=== PATIENT | female | born 1985 | race Caucasian/White ===

== ENCOUNTER → 2017-10-26 13:29 | Outpatient (REF) | payer OTHER, SELFPAY | LOC: LBN 13:29 | PROVIDERS: PCP Family Medicine; Visit Provider Obstetrics & Gynecology | DX: R10.2 Pelvic and perineal pain (principal) | CPT/HCPCS: 87077; 87086 ==

== ENCOUNTER 2018-03-05 10:06 | Outpatient (REF) | payer OTHER, MEDICAID, SELFPAY ==
[2018-03-05 20:44] LABS: Abs Immature Grans 0.02 k/cumm (0.0-0.09); Absolute Basophil Count 0.07 k/cumm (0.0-0.2); Absolute Eosinophil Count 0.22 k/cumm (0.0-0.7); Absolute Lymphocyte Count 2.17 k/cumm (1.2-3.4); Absolute Monocyte Count 0.59 k/cumm (0.11-0.7); Absolute Neutrophil Count 4.75 k/cumm (1.2-6.7); Basophils % 0.9; Eosinophils % 2.8; HCT 40.5 % (36.0-46.0); HGB 13.2 g/dL (12.0-15.5); Immature Grans % 0.3; Lymphocytes % 27.7; Mean Corp. HGB Concentration 32.6 g/dL (32.0-36.0); Mean Corpuscular Hemoglobin 28.9 pg (27.0-33.0); Mean Corpuscular Volume 88.8 fL (80-95); Mean Platelet Volume 11.2 fL (8.0-11.0); Monocytes % 7.5; Neutrophils % 60.8; Platelet Count 209 x1000/uL (130-400); RBC 4.56 m/cumm (4.00-5.20); RBC Distribution Width 13.3 % (11.7-14.6); White Blood Cell Count 7.82 k/cumm (4.4-10.8)
[2018-03-05 21:03] LABS: Iron 100 ug/dL (50-175); Total Iron Binding Capacity 241 ug/dL (250-450); Transferrin Sat 41 % (15-50)
[2018-03-05 21:24] LABS: ALT 50 U/L (12-78); AST 25 U/L (15-37); Albumin 4.3 g/dL (3.4-5.0); Alkaline Phosphatase 64 U/L (46-116); Anion Gap 11.2 mmol/L (3-11); BUN 12 mg/dL (7-18); Bilirubin, Total 0.4 mg/dL (0.2-1.0); CO2 25.8 mmol/L (21.0-32.0); CREATININE 0.76 mg/dL (0.55-1.02); Calcium 9.2 mg/dL (8.5-10.1); Chloride 105 mmol/L (98-107); Ferritin 123 ng/mL (8-388); Glucose 63 mg/dL (70-100); Potassium 3.8 mmol/L (3.5-5.1); Sodium 142 mmol/L (136-145); Total Protein 7.6 g/dL (6.4-8.2); Vitamin B12 423 pg/mL (193-986)
[2018-03-08 06:37] LABS: Vitamin D 25 Total 36.9 ng/ml (30-100)
[2018-03-08 09:34] LABS: Homocysteine 12.9 umol/L (4.5-12.4)
== END 2018-03-05 10:26 ==
LOC: LBN 10:06
PROVIDERS: PCP Family Medicine; Visit Provider Naturopath
DX: R53.83 Other fatigue (principal); Z13.220 Encounter for screening for lipoid disorders
CPT/HCPCS: 80053; 82306; 83090; 82607; 82652; 82728; 83540; 83550; 85025

== ENCOUNTER 2018-08-30 14:13 | Outpatient (REF) | payer OTHER, SELFPAY | END 2018-08-30 14:33 | LOC: LBN 14:13 | PROVIDERS: PCP Family Medicine; Visit Provider Nurse Practitioner Family | DX: R35.0 Frequency of micturition (principal) | CPT/HCPCS: 87086 ==

== ENCOUNTER 2018-12-10 11:52 | Outpatient (REF) | payer OTHER, SELFPAY ==
[2018-12-11 13:43] LABS: HSV 1 DNA Result POSITIVE; HSV 2 DNA Result Negative; Specimen Description LIP
[2018-12-13 14:26] LABS: GC Result Negative; Specimen Description URINE
[2018-12-13 14:57] LABS: Chlamydia Result Positive
== END 2018-12-10 12:12 ==
LOC: LBN 11:52
PROVIDERS: PCP Family Medicine; Visit Provider Nurse Practitioner
DX: R30.0 Dysuria (principal); B00.1 Herpesviral vesicular dermatitis
CPT/HCPCS: 87491; 87529; 87591; 87086

== ENCOUNTER 2018-12-27 13:49 | Outpatient (REF) | payer OTHER, SELFPAY ==
[2018-12-28 12:40] LABS: Chlamydia Result Negative (Negative); GC Result Negative (Negative); Specimen Description ENDOCERVICAL
== END 2018-12-27 14:09 ==
LOC: LBN 13:49
PROVIDERS: PCP Family Medicine; Visit Provider Obstetrics & Gynecology Gynecology
DX: R10.2 Pelvic and perineal pain (principal); R30.0 Dysuria; Z11.3 Encounter for screening for infections with a predominantly sexual mode of transmission
CPT/HCPCS: 87491; 87591

== ENCOUNTER 2018-12-29 01:29 | Outpatient (CLI) | payer OTHER, SELFPAY ==
--- NOTE | 2018-12-29 07:46 | DI.US_ITS ---
EXAM: US PELVIS TRANSVAGINAL CLINICAL HISTORY: pelvic pain and fullness, dysuria, R30.0, R10.2.,PAIN OVER BLADDER, BILAT FLANK PA IN TECHNIQUE: Ultrasound performed using standard protocol. COMPARISON: PELVIS TRANSVAG from 08/02/2014 FINDINGS: Transabdominal and transvaginal examination was carried out. Uterus measures 8.3 x 3.6 x 4.4 cm. End ometrium is 10.6 mm in thickness. There is a lower uterine segment anterior fibroid measuring 1.6 by 1.1 x 1.9 cm and a small quantity of fluid is noted in the cervical canal. Right ovary measures 4.4 x 2.7 x 3.0 cm and contains a 2.4 by 1.8 x 2.0 cm cyst. The left ovary measures 2.7 x 2.2 x 2.2 cm and contains a 1.6 x 1.0 x 1.5 cm cyst. Note is made of bilateral hydronephrosis, right more advance d than left. There is no evidence of ovarian torsion. Note is again made of a small quantity of flui d within the cervical canal.
== END 2018-12-29 01:49 ==
PROVIDERS: PCP Family Medicine; Visit Provider Obstetrics & Gynecology Gynecology
DX: R10.2 Pelvic and perineal pain (principal); R30.0 Dysuria; D25.9 Leiomyoma of uterus, unspecified; N83.291 Other ovarian cyst, right side; N83.292 Other ovarian cyst, left side
CPT/HCPCS: 76830; 76856

== ENCOUNTER 2019-01-14 00:51 | Outpatient (CLI) | payer OTHER, SELFPAY ==
--- NOTE | 2019-01-14 09:35 | DI.MRI_ITS ---
EXAM: MR BRAIN WO CLINICAL HISTORY: pt with worsening headaches and visual disturbance, R51, H53.9. TECHNIQUE: Multiplanar multisequence MRI was performed. COMPARISON: MRI - BRAIN WO CONTRAST from 04/17/2014 FINDINGS: Note is made of apparent bilateral maxillary retention cysts. Ventricular system is normal in appearance. No signal abnormality identified in the brain. Diffusio n-weighted imaging is within normal limits. There is normal flow void in the [id number] vascul ature. The orbital and temporal structures appear intact. Susceptibility weighted imaging shows no evidence of intracranial hemorrhage. IMPRESSION: Negative examination of the brain.
== END 2019-01-14 01:11 ==
PROVIDERS: PCP Family Medicine; Visit Provider Nurse Practitioner Adult Health
DX: R51 Headache (principal); H53.9 Unspecified visual disturbance; J34.1 Cyst and mucocele of nose and nasal sinus
CPT/HCPCS: 70551

== ENCOUNTER 2019-01-17 09:47 | Emergency (ER) | payer OTHER, SELFPAY ==
[2019-01-17 09:53] VITALS: BP 119/75; PULSE 72; RESP 14; TEMP 37; O2SAT 100
--- NOTE | 2019-01-17 10:35 | ED.GENADUL_ITS ---
Discharge Plan Disposition Patient Disposition: HOME Discharge Details Chief Complaint: Headache Clinical Impression: Refractory migraine Primary Care Provider: Tay Rodas ED Provider: Prem Paniagua Home Meds and New Rx's Prescriptions: No Action sumatriptan succinate 100 mg tablet 100 mg PO ONCE Qty: 5 RF: 5 valacyclovir 1 gram tablet 1,000 mg PO DAILY Qty: 8 RF: 0 naproxen 500 mg tablet 500 mg PO BID PRN (Reason: pain) Qty: 30 RF: 0 prochlorperazine maleate [Compazine] 10 mg tablet 10 mg PO Q8H PRN (Reason: nausea and vomiting) Qty: 20 RF: 0 oxybutynin chloride 5 mg tablet extended release 24hr 5 mg PO DAILY Qty: 30 RF: 3 oxycodone-acetaminophen 5-325 mg tablet 1 tab PO Q4H MDD 4 tabs PRN (Reason: pain) Qty: 15 RF: 0 propranolol 60 mg capsule,extended release 24 hr 60 mg PO DAILY Qty: 30 RF: 1 cholecalciferol (vitamin D3) 1,000 unit capsule 1,000 unit PO DAILY RF: 0 cyanocobalamin (vitamin B-12) Tablet,Chewable PO PRNRF: 0 methylprednisolone 4 mg tablets,dose pack See Rx Instructions PO PER PKG DIR Qty: 21 RF: 0 Fish Oil 1 EACH capsule 1 ea PO DAILY RF: 0 quetiapine 200 mg tablet 200 mg PO HS Qty: 90 RF: 4 Discharge Instructions Instructions: Migraine Headache (ED) Additional Instructions: Your lab tests in the emergency department were negative for any acute findings. Your MRI done on 01/14/2019 was negative. I have placed a referral to neurology for follow-up in their headache clinic. You must contact your primary care provider in the interim to discuss further outpatient management and possible time off from work. If your symptoms acutely worsen you should return to the emergency department. Continue to take your medications as prescribed. Stand Alone Forms: Work Release Referrals: Tay Rodas MD [Primary Care Provider] - 3 days Discharge Data Discharge Date/Time-TO BE ENTERED AT DEPARTURE: 01/17/19 12:43 Medical Decision Making This is a 33-year-old female with recurrent migraine headaches over the last year however her current episode is lasted 6 days. Despite best efforts here in the emergency department she still rates her headache a 5 out of 10. She did have slight improvement with fluids and medication. She had an MRI done outpatient on Thursday which was negative for any structural pathology. She has not formally been seen in the headache clinic at [facility] [place], therefore, I have placed a referral for follow-up. She is requesting her IV pole at this time as it is causing her great discomfort. Her blood tests are all within normal limits and I see no focal deficits on exam. We discussed follow-up return precautions and return for her PCP if symptoms persist. She should return to the emergency department if they acutely worsen. HPI General Date/Time Provider Initiated Documentation: 01/17/19 10:00 . HPI Narrative: Patient is a 33-year-old female with a significant past medical history for migraines along with bipolar disorder and depression who presents to the emergency department with ongoing worsening migraine headache. Patient states that she is had this migraine for roughly 6 days. Her typical migraine pattern is 3 days with 4 days of rest. She has been seen by her primary care provider several times with multiple different medication regimens. She had an MRI performed here at [facility] on Thursday. She locates the her headache along the frontal region. She has visual floaters and photophobia. She reports some nausea. She has been able to drink water without any vomiting. She denies any fevers or neck stiffness. No rashes. She has not been seen by neurology for her recurrent migraines. She states that she averages roughly one migraine a week. Related Data Home Medications Medication Instructions Recorded Confirmed omega-3 fatty acids-fish oil [Fish 1 ea PO DAILY 09/05/13 01/03/19 Oil 1,000 Mg Capsule] quetiapine 200 mg tablet 200 mg PO HS #90 tab-cap 03/29/18 01/03/19 sumatriptan succinate 100 mg tablet 100 mg PO ONCE #5 tab-cap 03/30/18 01/03/19 cholecalciferol (vitamin D3) 1,000 1,000 unit PO DAILY 12/07/18 01/03/19 unit capsule cyanocobalamin (vitamin B-12) tab PO PRN 12/07/18 01/03/19 valacyclovir 1 gram tablet 1,000 mg PO DAILY #8 tab 12/10/18 01/03/19 naproxen 500 mg tablet 500 mg PO BID PRN #30 tab 12/24/18 01/03/19 prochlorperazine maleate 10 mg 10 mg PO Q8H PRN #20 tab 12/24/18 01/03/19 tablet methylprednisolone 4 mg tablets in See Rx Instructions PO PER PKG DIR 12/29/18 01/03/19 a dose pack #21 dose pk oxybutynin chloride 5 mg 5 mg PO DAILY #30 tab 01/03/19 01/03/19 tablet,extended release 24 hr oxycodone-acetaminophen 5 mg-325 1 tab PO Q4H PRN #15 tab MDD 4 tabs 01/14/19 01/14/19 mg tablet propranolol 60 mg capsule,24 60 mg PO DAILY #30 cap 01/14/19 01/14/19 hr,extended release Previous Rx's Medication Instructions Recorded quetiapine 200 mg tablet 200 mg PO HS #90 tab-cap 03/29/18 sumatriptan succinate 100 mg tablet 100 mg PO ONCE #5 tab-cap 03/30/18 valacyclovir 1 gram tablet 1,000 mg PO DAILY #8 tab 12/10/18 naproxen 500 mg tablet 500 mg PO BID PRN #30 tab 12/24/18 prochlorperazine maleate 10 mg 10 mg PO Q8H PRN #20 tab 12/24/18 tablet methylprednisolone 4 mg tablets in See Rx Instructions PO PER PKG DIR 12/29/18 a dose pack #21 dose pk oxybutynin chloride 5 mg 5 mg PO DAILY #30 tab 01/03/19 tablet,extended release 24 hr oxycodone-acetaminophen 5 mg-325 1 tab PO Q4H PRN #15 tab MDD 4 tabs 01/14/19 mg tablet propranolol 60 mg capsule,24 60 mg PO DAILY #30 cap 01/14/19 hr,extended release Allergies Allergy/AdvReac Type Severity Reaction Status Date / Time Penicillins Allergy Severe HIVES - Verified 01/17/19 10:03 CHILDHOOD ALLERGY fluconazole [From Diflucan] Allergy Intermediate Hives Verified 01/17/19 10:03 lamotrigine [From Lamictal] Allergy Intermediate RASH Verified 01/17/19 10:03 lithium AdvReac Severe PSYCHOSIS Verified 01/17/19 10:03 sertraline AdvReac Severe PSYCHOSIS Verified 01/17/19 10:03 Blue Cheese Allergy Intermediate Hives Uncoded 01/17/19 10:03 General Stated Complaint: Headache GRACIE: 3 Review of Systems Constitutional Constitutional: Denies chills, Denies fever(s), Reports headache(s), Denies lethargy, Denies night sweats, Denies poor appetite and Denies weakness Eyes Eyes: Denies blind spots, Denies diplopia, Reports floaters, Denies loss of vision, Reports seeing flashes, Reports photophobia and Reports tunnel vision ENT Ears, Nose, Mouth, and Throat: Denies vertigo, Denies dizziness, Reports dry mouth, Reports headache(s) and Denies neck pain Cardiovascular Cardiovascular: Denies chest pain, Denies syncope, Denies edema and Denies dyspnea Respiratory Respiratory: Denies cough and Denies dyspnea Gastrointestinal Gastrointestinal: Reports nausea and Denies vomiting Genitourinary Genitourinary: Reports urinary frequency, Denies difficulty voiding, Denies dysuria, Denies urinary incontinence, Denies urinary hesitancy, Denies urinary urgency and Denies vaginal discharge Musculoskeletal Musculoskeletal: Denies abnormal gait, Denies back pain, Denies neck pain, Denies numbness and Denies tingling Integumentary/Breasts Skin/Breast: Denies rash Neurologic Neurologic: Denies abnormal speech, Denies abnormal gait, Denies confusion, Denies vertigo, Denies dizziness, Denies syncope, Reports headache(s), Denies loss of vision, Denies numbness, Reports other visual disturbances, Denies tingling, Denies paresthesias and Denies weakness Psychiatric Psychiatric: Denies confusion [facility] Medical History Anxiety (Chronic) Bipolar disorder, in full remission, most recent episode depressed (Chronic 09/06/15) Carpal tunnel syndrome (Resolved) Dysuria (Acute) Irritable bowel syndrome (Chronic) Migraine headache without aura (Acute) Obstructive sleep apnea (Chronic) PTSD (post-traumatic stress disorder) (Chronic 09/06/15) Radial styloid tenosynovitis (Resolved) Recurrent cold sores (Acute) Right lumbar radiculopathy (Resolved 09/06/15) Surgical History Open Carpal Tunnel release (09/05/08) Family History Father Substance abuse Mother Depression Social History Smoking/Tobacco Use Status: Never Alcohol Intake: current Alcohol Intake frequency: a few times a month Drug use: Never Substance use type: does not use Household members: none Number of Children: 0 What is your relationship status?: Panel score (0-1 are the most socially isolated patients): 0 Do you feel safe at home: Yes Do you feel safe in your relationship?: Yes History History 0 Para Hx # Term Pregnancies Multiple births Hx # Pregnancies Ectopic pregnancies AB induced Hx Number of Living Children AB spontaneous Exam Const General: cooperative, healthy appearing and no acute distress Orientation: alert, awake and oriented x3 HENMT Head: normal to inspection, normocephalic and atraumatic Ears: hearing grossly normal bilaterally and TM's normal bilaterally General nose exam: external nose normal Face and sinus: normal facial exam Mouth: oral mucosae normal Teeth and gingiva: dentition normal Throat: posterior oropharynx normal Eyes General: appearance normal, both eyes and all related structures Visual Hernadez: normal visual hernadez by confrontation Periorbital: periorbital findings normal Eyelids: eyelids normal Conjunctivae: conjunctivae normal Pupils: PERRL EOM: EOM intact bilaterally Neck Neck: normal visual inspection, full ROM, no lymphadenopathy and no meningeal signs Chest Chest: normal inspection of the chest Resp Effort & Inspection: normal respiratory effort Cardio Rate: regular rate Rhythm: regular rhythm Pulses: normal peripheral pulses GI Inspection: normal to inspection Skin General skin exam: no rashes or lesions noted Neuro General: alert, awake and oriented x3 Cranial Nerves: CN's II-XI intact bilaterally Cognition: normal cognition Speech: speech normal Gait: normal gait Motor: muscle tone normal throughout Sensory Exam: no sensory deficits noted Extrem General: normal to inspection and full ROM Course Vital Signs Vital signs: Vital Signs Temperature 37 C 01/17/19 09:53 Pulse 72 01/17/19 09:53 Respiratory Rate 14 01/17/19 09:53 Blood Pressure 119/75 01/17/19 09:53 Pulse Oximetry 100 01/17/19 09:53 Temperature 37 C 01/17/19 09:53 Temperature Source Skin 01/17/19 09:53 Pulse 72 01/17/19 09:53 Respiratory Rate 14 01/17/19 09:53 Respiratory Effort 01/17/19 09:58 Blood Pressure 119/75 01/17/19 09:53 Blood Pressure Position Sitting 01/17/19 09:53 Pulse Oximetry 100 01/17/19 09:53 Oxygen Delivery Method Room Air 01/17/19 09:53 Oxygen Flow Rate 0 01/17/19 09:53 Pain Level 7 01/17/19 09:53
[2019-01-17] MEDS: Normal Saline 1,000 ML 1000 ML IV ×2 (10:40→11:50)
[2019-01-17] MEDS: diphenhydrAMINE 50 MG/ML VIAL IVP (10:55)
[2019-01-17 10:58] LABS: Abs Immature Grans 0.01 k/cumm (0.0-0.09); Absolute Basophil Count 0.04 k/cumm (0.0-0.2); Absolute Eosinophil Count 0.15 k/cumm (0.0-0.7); Absolute Lymphocyte Count 1.97 k/cumm (1.2-3.4); Absolute Monocyte Count 0.31 k/cumm (0.11-0.7); Absolute Neutrophil Count 2.96 k/cumm (1.2-6.7); Basophils % 0.7; Eosinophils % 2.8; HCT 41.8 % (36.0-46.0); HGB 13.4 g/dL (12.0-15.5); Immature Grans % 0.2; Lymphocytes % 36.2; Mean Corp. HGB Concentration 32.1 g/dL (32.0-36.0); Mean Corpuscular Hemoglobin 28.8 pg (27.0-33.0); Mean Corpuscular Volume 89.9 fL (80-95); Mean Platelet Volume 10.5 fL (8.0-11.0); Monocytes % 5.7; Neutrophils % 54.4; Platelet Count 201 x1000/uL (130-400); RBC 4.65 m/cumm (4.00-5.20); RBC Distribution Width 13.2 % (11.7-14.6); White Blood Cell Count 5.44 k/cumm (4.4-10.8)
[2019-01-17] MEDS: Ondansetron 4 MG/2 ML VIAL IVP (10:59)
[2019-01-17] MEDS: Ketorolac 30 MG/ML VIAL 15 MG IVP (11:00)
[2019-01-17 11:09] LABS: ALT 31 U/L (14-59); AST 17 U/L (15-37); Albumin 3.9 g/dL (3.4-5.0); Alkaline Phosphatase 53 U/L (46-116); Anion Gap 5.1 mmol/L (3-11); BUN 11 mg/dL (7-18); Bilirubin, Total 0.2 mg/dL (0.2-1.0); CO2 28.9 mmol/L (21.0-32.0); CREATININE 0.74 mg/dL (0.55-1.02); Calcium 8.7 mg/dL (8.5-10.1); Chloride 107 mmol/L (98-107); Glucose 67 mg/dL (70-100); Sodium 141 mmol/L (136-145); Total Protein 7.1 g/dL (6.4-8.2)
[2019-01-17 11:11] LABS: Bilirubin Negative (Negative); Blood Negative (Negative); Clarity Clear (Clear); Glucose Negative (Negative); Ketones Negative (Negative); Leukocyte Esterase Negative (Negative); Nitrite Negative (Negative); Urobilinogen 0.2 EU/dL (Up TO 0.2)
[2019-01-17 12:17] VITALS: PULSE 68; RESP 22; TEMP 36.6; O2SAT 100
[2019-01-17 12:29] LABS: ESR 8 mm/hr (0-20)
[2019-01-17 12:33] VITALS: BP 99/72; PULSE 68; RESP 22; TEMP 36.6; O2SAT 100
[2019-01-17 12:38] VITALS: BP 99/72
== END 2019-01-17 12:43 | disposition home or self-care (01) ==
PROVIDERS: Emergency Provider Physician Assistant; PCP Family Medicine
DX: G43.919 Migraine, unspecified, intractable, without status migrainosus (principal)
CPT/HCPCS: 80053; 85652; 96361; 96374; 96375; 99284; 81003; 85025; J1200; J1885; J2405

== ENCOUNTER 2019-02-03 19:11 | Outpatient (REF) | payer OTHER, SELFPAY ==
[2019-02-03 19:09] LABS: Anion Gap 9.1 mmol/L (3-11); BUN 14 mg/dL (7-18); CO2 27.9 mmol/L (21.0-32.0); CREATININE 0.78 mg/dL (0.55-1.02); Calcium 9.3 mg/dL (8.5-10.1); Chloride 105 mmol/L (98-107); Glucose 100 mg/dL (70-100); Potassium 3.9 mmol/L (3.5-5.1); Sodium 142 mmol/L (136-145); TSH (W/Ref FT4) 0.68 uIU/mL (0.36-3.74); Vitamin B12 477 pg/mL (193-986)
== END 2019-02-03 19:31 ==
LOC: LBN 19:11
PROVIDERS: PCP Family Medicine; Visit Provider Otolaryngology Otolaryngology/Facial Plastic Surgery
DX: G44.201 Tension-type headache, unspecified, intractable (principal)
CPT/HCPCS: 80048; 82607; 84443

== ENCOUNTER 2020-01-04 16:33 | Outpatient (REF) | payer MEDICAID, SELFPAY ==
--- NOTE | 2020-01-04 15:30 | PAPFT_PTH ---
PATIENT: Roro Seaman LOC: [facility] U#:[id number] AGE/SX: 34/F ROOM: RE01/04/[address]: Jess Florian : 1985 BED: DIS: 01/04/2020 SPEC #: [id number] RECD: 01/04/20 17:49 STATUS: DOUG REQ #: [id number] ENA: 01/04/20 15:[address]: Jess Florian DEPT: [facility] Cytology RECD BY: Lillie Gardner ENTERED: 01/04/20 17:49 SP TYPE: PAPFT OTHR DR: Paulino Thompson MD Tissues: 1 - CX/ENDOCX FOR PAP SMEARS Procedures: PAP THIN PREP/UVM Screening HPV DNA PROBE Comments: [id number]
[2020-01-06 15:22] LABS: Chlamydia Result Negative (Negative); GC Result Negative (Negative)
== END 2020-01-04 16:53 ==
LOC: LBN 16:33
PROVIDERS: PCP Family Medicine; Visit Provider Obstetrics & Gynecology Gynecology
DX: Z12.4 Encounter for screening for malignant neoplasm of cervix (principal); Z11.3 Encounter for screening for infections with a predominantly sexual mode of transmission; Z11.51 Encounter for screening for human papillomavirus (HPV)
CPT/HCPCS: 87491; 87591; 88142; 87624

== ENCOUNTER 2020-05-01 19:58 | Outpatient (REF) | payer MEDICAID, SELFPAY ==
[2020-05-03 15:29] LABS: Chlamydia Result Negative (Negative); GC Result Negative (Negative)
== END 2020-05-01 19:59 | disposition home or self-care (01) ==
LOC: NCHCN 19:58
PROVIDERS: PCP Family Medicine; Visit Provider Nurse Practitioner Women's Health
DX: Z11.3 Encounter for screening for infections with a predominantly sexual mode of transmission (principal)
CPT/HCPCS: 87491; 87591

== ENCOUNTER 2020-11-23 10:40 | Outpatient (CLI) | payer MEDICAID, SELFPAY ==
[2020-11-23 12:47] LABS: Calculated LDL 106 mg/dL (<100); Cholesterol 185 mg/dL (<200); HDL Cholesterol 70 mg/dL (40-60); TSH 0.83 uIU/mL (0.36-3.74); Triglyceride 47 mg/dL (<150)
[2020-11-23 12:58] LABS: Hemoglobin A1C 5.3 % (<5.7)
== END 2020-11-23 10:41 | disposition home or self-care (01) ==
LOC: LOS 10:41
PROVIDERS: PCP Nurse Practitioner Family; Referring Provider Nurse Practitioner Family; Visit Provider Nurse Practitioner Family
DX: F31.70 Bipolar disorder, currently in remission, most recent episode unspecified (principal); Z13.220 Encounter for screening for lipoid disorders; Z13.1 Encounter for screening for diabetes mellitus
CPT/HCPCS: 36415; 80061; 83036; 84443

== ENCOUNTER 2021-03-18 15:21 | Outpatient (REF) | payer MEDICAID, SELFPAY ==
[2021-03-18 18:33] LABS: Abs Immature Grans 0.02 10^3/uL (0.0-0.06); Absolute Basophil Count 0.06 10^3/uL (0.0-0.2); Absolute Eosinophil Count 0.16 10^3/uL (0.0-0.7); Absolute Monocyte Count 0.47 10^3/uL (0.1-0.8); Absolute Neutrophil Count 4.88 10^3/uL (1.2-6.7); Basophils % 0.7; HCT 39.2 % (36.0-46.0); HGB 12.6 g/dL (11.2-15.7); Immature Grans % 0.2; Lymphocytes % 30.9; MCH 29.4 pg (27.0-33.0); MCHC 32.1 % (32.0-36.0); MCV 91.6 fL (80-95); MPV 10.6 fL (8.0-11.0); Monocytes % 5.8; Neutrophils % 60.4; Nucleated RBC 0 %; Platelet Count 238 10^3/uL (130-400); RBC 4.28 10^6/uL (3.93-5.22); RDW 12.4 % (11.7-14.6); RDW-SD 41.8 fL; WBC 8.09 10^3/uL (4.4-10.8)
[2021-03-18 18:41] LABS: Mono Screening Negative (Negative)
[2021-03-20 09:53] LABS: COVID-19 RT-PCR UVMMC Result Negative (Negative)
== END 2021-03-18 15:22 | disposition home or self-care (01) ==
LOC: NCHCN 15:21
PROVIDERS: PCP Nurse Practitioner Family; Visit Provider Family Medicine
DX: J06.9 Acute upper respiratory infection, unspecified (principal); R53.83 Other fatigue; Z20.822 Contact with and (suspected) exposure to COVID-19
CPT/HCPCS: U0003; 85025; 86308

== ENCOUNTER 2021-04-22 16:15 | Outpatient (REF) | payer MEDICAID, SELFPAY ==
[2021-04-24 11:21] LABS: COVID-19 RT-PCR UVMMC Result Negative (Negative)
== END 2021-04-22 16:16 | disposition home or self-care (01) ==
LOC: LBN 16:15
PROVIDERS: PCP Nurse Practitioner Family; Visit Provider Nurse Practitioner Family
DX: Z20.822 Contact with and (suspected) exposure to COVID-19 (principal)
CPT/HCPCS: U0003

== ENCOUNTER 2021-10-28 15:18 | Outpatient (REF) | payer MEDICAID, SELFPAY ==
[2021-10-28 20:29] LABS: Abs Immature Grans 0.01 10^3/uL (0.0-0.06); Absolute Basophil Count 0.08 10^3/uL (0.0-0.2); Absolute Eosinophil Count 0.14 10^3/uL (0.0-0.7); Absolute Lymphocyte Count 1.78 10^3/uL (1.2-3.4); Absolute Monocyte Count 0.42 10^3/uL (0.1-0.8); Absolute Neutrophil Count 4.96 10^3/uL (1.2-6.7); Basophils % 1.1; Eosinophils % 1.9; HCT 40.2 % (36.0-46.0); HGB 13.5 g/dL (11.2-15.7); Immature Grans % 0.1; Lymphocytes % 24.1; MCH 30.3 pg (27.0-33.0); MCHC 33.6 % (32.0-36.0); MCV 90 fL (80-95); MPV 11.2 fL (8.0-11.0); Monocytes % 5.7; Neutrophils % 67.1; Platelet Count 207 10^3/uL (130-400); RBC 4.46 10^6/uL (3.93-5.22); RDW 12.3 % (11.7-14.6); RDW-SD 40.8 fL; WBC 7.39 10^3/uL (4.4-10.8)
[2021-10-28 20:33] LABS: Bilirubin Negative (Negative); Blood Trace-lysed (Negative); Clarity Clear (Clear); Glucose Negative (Negative); Ketones Negative (Negative); Leukocyte Esterase Negative (Negative); Nitrite Negative (Negative); Specific Gravity 1.015 (1.005-1.025); Urobilinogen 0.2 EU/dL (Up TO 0.2)
[2021-10-28 20:41] LABS: ALT 25 U/L (14-59); AST 15 U/L (15-37); Albumin 4.2 g/dL (3.4-5.0); Alkaline Phosphatase 49 U/L (46-116); Anion Gap 8.9 mmol/L (3-11); BUN 15 mg/dL (7-18); Bilirubin, Total 0.4 mg/dL (0.2-1.0); CO2 29.1 mmol/L (21.0-32.0); CREATININE 0.8 mg/dL (0.55-1.02); Chloride 104 mmol/L (98-107); Glucose 89 mg/dL (74-106); Lipase 51 U/L (73-393); Potassium 3.6 mmol/L (3.5-5.1); Sodium 142 mmol/L (136-145); Total Protein 6.8 g/dL (6.4-8.2)
[2021-10-28 20:45] LABS: Bacteria Negative HPF (Negative); Crystals Negative HPF (Negative); Epithelial Cells Few HPF (Negative); Mucus Negative (Negative); RBC 0-2 HPF (0-2); WBC Negative HPF (0-5)
[2021-10-28 20:46] LABS: C & S Indicated? No
== END 2021-10-28 15:19 | disposition home or self-care (01) ==
LOC: LBN 15:18
PROVIDERS: PCP Nurse Practitioner Family; Visit Provider Nurse Practitioner Family
DX: R10.11 Right upper quadrant pain (principal); R39.89 Other symptoms and signs involving the genitourinary system
CPT/HCPCS: 80053; 83690; 81003; 81015; 85025

== ENCOUNTER 2021-10-28 15:53 | Emergency (ER) | payer MEDICAID, SELFPAY ==
[2021-10-28 15:56] VITALS: BP 122/80; PULSE 84; RESP 18; TEMP 37; O2SAT 99
--- NOTE | 2021-10-28 17:00 | DI.CT_ITS ---
Exam(s) CT ABDOMEN PELVIS WO EXAM: CT ABDOMEN PELVIS WO CLINICAL HISTORY: R Flank , RUQ abd Pain, R/O Kidney stone. TECHNIQUE: Imaging Protocol: Axial computed tomography images with coronal and sagittal reformatted images were created and reviewed. Oral: no COMPARISON: No exams were available for comparison FINDINGS: ABDOMEN: Lung Bases: Normal where visualized. Liver: Normal density. No measurable mass. Gallbladder and biliary tract: No radiodense calculus or dilation. Pancreas: Normal density, no abnormal calcifications or inflammatory process. Spleen: Normal. Kidneys: Normal size, contour and axis. There is a 3 millimeter stone at the right ureterovesical tanya ction causing [id number] right hydronephrosis. No additional calculi are seen.. No masses see n. Adrenal glands: No masses seen. Lymph nodes: Within normal limits. Abdominal Aorta: Abdominal portion non-dilated. PELVIS: Bladder: Symmetric distention, no gross wall thickening. Bowel: No obstruction or bowel wall thickening. Peritoneal cavity: No ascites, collection or mesenteric inflammatory response. Reproductive organs: Within normal limits. Bones: Degenerative disc changes L5-S1, otherwise within normal limits. IMPRESSION: Xhxa-xx-umrertow right hydronephrosis secondary to a 3 millimeter stone at the right ureterovesical j unction. RADIATION DOSE DELIVERED: 756.42mGy.cm Total DLP DATA REPOSITORY: All CT scans at this facility are submitted to the National Radiology Data Registry (NRDR) Dose Index Registry (DIR) with the [employer] (ACR). RADIATION OPTIMIZATION: All CT scans at this facility use at least one of these dose optimization te chniques: automated exposure control; mA and/or kV adjustment per patient size (includes targeted exa ms where dose is matched to clinical indication); or iterative reconstruction.
--- NOTE | 2021-10-28 17:09 | W.ED.GENAD ---
Discharge Plan Disposition Patient Disposition: HOME Condition: Stable Discharge Details Clinical Impression: Hydroureter on right, Kidney stone on right side Primary Care Provider: Stuart Vincent ED Provider: Darby Flynn Home Meds and New Rx's Prescriptions: New tamsulosin 0.4 mg capsule 0.4 mg PO QHS Qty: 7 0RF Rx Instructions: Take 1 tablet by mouth at bedtime. Stop taking if dizziness occurs. No Action (DME) Aerochamber MV Spacer See Rx Instructions .ROUTE .MEDSUPPLY Qty: 1 0RF Rx Instructions: As directed Pulmicort Flexhaler 90 mcg/actuation aerosol powdr breath activated 1 inh inhalation BID prochlorperazine maleate [Compazine] 10 mg tablet 10 mg PO Q8H PRN (Reason: nausea and headache) Qty: 30 2RF Rx Instructions: Take one tab every 8 hours as needed for headache or nausea. quetiapine 200 mg tablet 200 mg PO HS Qty: 90 4RF cholecalciferol (vitamin D3) 1,000 unit capsule 1,000 unit PO DAILY cyanocobalamin (vitamin B-12) Tablet,Chewable PO PRN valacyclovir 1 gram tablet 1,000 mg PO DAILY PRN Rx Instructions: take 2 tabs 2 x daily at onset of cold sore terconazole 0.4 % cream 1 appful vaginal DAILY Qty: 45 0RF Rx Instructions: Use one applicatorfull in vagina at bedtime for 7 days metronidazole 0.75 % gel 1 appful vaginal QHS 5 Days Qty: 70 1RF Rx Instructions: insert one applicator full intravaginally daily for 5 days Fish Oil 1 EACH capsule 1 ea PO DAILY cetirizine 10 mg tablet 10 mg PO DAILY Qty: 30 1RF famotidine 20 mg tablet 20 mg PO DAILY Qty: 30 1RF albuterol sulfate [Ventolin HFA] 90 mcg/actuation HFA aerosol inhaler 2 puff inhalation Q4H PRN (Reason: shortness of breath or wheezing) Qty: 18 5RF albuterol sulfate [ProAir HFA] 90 mcg/actuation HFA aerosol inhaler 2 puff inhalation Q6H PRN (Reason: shortness of breath or wheezing) Qty: 8.5 0RF Discharge Instructions Instructions: Kidney Stones (ED) Additional Instructions: CT shows a 0.3 cm kidney stone in the right ureter. This is causing some fluid to be backed up. Please take the tamsulosin or Flomax 1 tablet at night at bedtime to aid with ureteral dilation. Please take Tylenol or Ibuprofen with food every 4-6 hours as needed for pain and swelling. Please follow-up with urology in the next 3 to 5 days. You are placed on a care management list they should call you for an appointment however you may call within the next 24 hours to make an appointment as well. Please return to the ER for any fevers, inability to urinate, vomiting or worsening pain not relieved by medications or any concerns. There is no evidence of urinary tract infection at this time. Referrals: Silvestre Obregon MD [ [facility] STAFF PHYSICIAN] - 3 days Madonna Love DNP [NURSE PRACTITIONER] - 3 days Medical Decision Making 35-year-old female was seen at urgent care and had an ultrasound today who is complaining of right upper quadrant abdominal pain and right flank pain which began this morning. She reports nausea no vomiting reports increased urinary frequency. CT abdomen pelvis without contrast ordered. CT shows right UVJ calculus 0.3 cm with moderate right hydro ureter nephrosis. Left kidney is unremarkable. Patient is requesting to be discharged and leave prior to discharge. Will give prescription for Flomax and follow-up with urology. No evidence of urinary tract infection or infected stone. [facility] home care and follow-up. Patient verbalized understanding. I did offer pain medication and she declines at this time. This text was generated using [employer] dictation system, please disregard any oddities of phrase or misspellings. Medical Records Medical records reviewed: Yes I reviewed the patient's medical records. Imaging Data Radiologic Study: Imaging: CT Scan Radiologist's impression: CT ABD/Pelvis WO: FINDINGS: Liver: There is a subcentimeter right hepatic hypodensity, too small to accurately characterize statistically favored to represent a cyst or hemangioma (series 2, image 14). Gallbladder and bile ducts: Unremarkable. Pancreas: Unremarkable. Spleen: Unremarkable. Adrenal glands: Unremarkable. Kidneys and ureters: There is a 0.3 cm calculus at the right ureterovesical junction. There is moderate right hydroureteronephrosis. The left kidney is unremarkable. Stomach and bowel: Unremarkable. No dilated loops of bowel to suggest obstruction. Appendix: No evidence of appendicitis. Intraperitoneal space: No free air. No significant fluid collection. Vasculature: There are phleboliths in the pelvis. No abdominal aortic aneurysm. Lymph nodes: No enlarged lymph nodes. Urinary bladder: Unremarkable as visualized. Reproductive: Unremarkable as visualized. Bones/joints: Degenerative changes in the lumbar spine. No acute fracture. Soft tissues: Unremarkable. IMPRESSION: Right ureterovesical junction calculus with moderate right hydroureteronephrosis. Lab Data Lab results reviewed: Yes I reviewed the patient's lab results. Labs: Laboratory Tests Range/Units 10/28/21 16:59 Urine Color (Yellow) Yellow Urine Clarity (Clear) Clear Urine pH (5-8) 7.0 Ur Specific [place] (1.005-1.025) 1.015 Urine Protein (Negative) mg/dL Negative Urine Ketones (Negative) mg/dL Negative Urine Blood (Negative) Negative Urine Nitrite (Negative) Negative Urine Bilirubin (Negative) Negative Urine Urobilinogen (Up TO 0.2) EU/dL 0.2 Ur Leukocyte Esterase (Negative) Negative Urine Glucose (Negative) mg/dL Negative HPI General Mode of arrival: ambulatory. Date/Time Provider Initiated Documentation: 10/28/21 16:22. Limitations to Documentation: no limitations. Information obtained by: patient, RN notes reviewed and old records reviewed. HPI Narrative: 35-year-old female was seen at urgent care and had an ultrasound today who is complaining of right upper quadrant abdominal pain and right flank pain which began this morning. She reports nausea no vomiting reports increased urinary frequency. Ultrasound shows right-sided hydronephrosis and an 8 x 9 possible hemangioma. She was sent here for further imaging and evaluation. She has not taken any Tylenol or ibuprofen when offered the medication she declined at this time. She has no other associated symptoms. Past medical history includes migraine, ADHD, anxiety, PTSD. She is allergic to penicillin. Related Data Home Medications Medication Instructions Recorded Confirmed omega-3 fatty acids-fish oil 340 1 ea PO DAILY 09/05/13 05/13/21 mg-1,000 mg capsule (Fish Oil) cholecalciferol (vitamin D3) 25 1,000 unit PO DAILY 12/07/18 05/13/21 mcg (1,000 unit) capsule cyanocobalamin (vitamin B-12) tab PO PRN 12/07/18 05/13/21 valacyclovir 1 gram tablet 1,000 mg PO DAILY PRN 02/28/19 05/13/21 inhalational spacing device #1 ea 01/16/20 05/13/21 (Aerochamber MV spacer) cetirizine 10 mg tablet 10 mg PO DAILY #30 tabs 03/21/20 05/13/21 famotidine 20 mg tablet 20 mg PO DAILY #30 tabs 03/21/20 05/13/21 terconazole 0.4 % vaginal cream 1 appful vaginal DAILY #45 grams 05/01/20 05/13/21 metronidazole 0.75 % vaginal gel 1 appful vaginal QHS 5 days #70 06/20/20 05/13/21 grams albuterol sulfate 90 mcg/actuation 2 puff inhalation Q4H PRN 09/06/20 05/13/21 aerosol inhaler (Ventolin HFA) shortness of breath or wheezing #18 grams albuterol sulfate 90 mcg/actuation 2 puff inhalation Q6H PRN 09/07/20 05/13/21 aerosol inhaler (ProAir HFA) shortness of breath or wheezing #8.5 grams budesonide 90 mcg/actuation breath 1 inh inhalation BID 11/23/20 05/13/21 activated powder inhaler (Pulmicort Flexhaler) prochlorperazine maleate 10 mg 10 mg PO Q8H PRN nausea and 11/23/20 05/13/21 tablet (Compazine) headache #30 tabs quetiapine 200 mg tablet 200 mg PO HS #90 tab-caps 11/23/20 05/13/21 tamsulosin 0.4 mg capsule 0.4 mg PO QHS #7 caps 10/28/21 Previous Rx's Medication Instructions Recorded inhalational spacing device #1 ea 01/16/20 (Aerochamber MV spacer) cetirizine 10 mg tablet 10 mg PO DAILY #30 tabs 03/21/20 famotidine 20 mg tablet 20 mg PO DAILY #30 tabs 03/21/20 terconazole 0.4 % vaginal cream 1 appful vaginal DAILY #45 grams 05/01/20 metronidazole 0.75 % vaginal gel 1 appful vaginal QHS 5 days #70 06/20/20 grams albuterol sulfate 90 mcg/actuation 2 puff inhalation Q4H PRN 09/06/20 aerosol inhaler (Ventolin HFA) shortness of breath or wheezing #18 grams albuterol sulfate 90 mcg/actuation 2 puff inhalation Q6H PRN 09/07/20 aerosol inhaler (ProAir HFA) shortness of breath or wheezing #8.5 grams prochlorperazine maleate 10 mg 10 mg PO Q8H PRN nausea and 11/23/20 tablet (Compazine) headache #30 tabs quetiapine 200 mg tablet 200 mg PO HS #90 tab-caps 11/23/20 tamsulosin 0.4 mg capsule 0.4 mg PO QHS #7 caps 10/28/21 Allergies Allergy/AdvReac Type Severity Reaction Status Date / Time Penicillins Allergy Severe HIVES - Verified 10/28/21 15:59 CHILDHOOD ALLERGY fluconazole [From Diflucan] Allergy Intermediate Hives Verified 10/28/21 15:59 lamotrigine [From Lamictal] Allergy Intermediate RASH Verified 10/28/21 15:59 lithium AdvReac Severe PSYCHOSIS Verified 10/28/21 15:59 sertraline AdvReac Severe PSYCHOSIS Verified 10/28/21 15:59 Blue Cheese Allergy Intermediate Hives Uncoded 10/28/21 15:59 dairy Allergy Intermediate Hives Uncoded 10/28/21 15:59 eggs Allergy Intermediate Hives Uncoded 10/28/21 15:59 General Stated Complaint: Abd Prob GRACIE: 3 Review of Systems All systems reviewed & are unremarkable except as noted in HPI and below Gastrointestinal Gastrointestinal: Reports abdominal pain Genitourinary Genitourinary: Denies difficulty voiding, Denies dysuria and Reports flank pain PFSH All Active Problems (Updated 10/28/21 @ 18:39 by Darby Flynn NP) Hydroureter on right (Acute) Kidney stone on right side (Acute) Otitis externa (Acute) Sinus infection (Acute) Allergic rhinitis (Acute) Reactive airway disease (Acute) Migraine headache with aura (Acute) ADHD (attention deficit hyperactivity disorder), inattentive type (Acute) Recurrent cold sores (Acute) Migraine headache without aura (Acute) Irritable bowel syndrome (Chronic) Obstructive sleep apnea (Chronic) pt could not tolerate CPAP. Anxiety (Chronic) Bipolar disorder, in full remission, most recent episode depressed (Chronic 09/06/15) PTSD (post-traumatic stress disorder) (Chronic 09/06/15) Medical History (Updated 10/28/21 @ 18:39 by Darby Flynn NP) Carpal tunnel syndrome Dysuria Pelvic pain Radial styloid tenosynovitis Right lumbar radiculopathy (09/06/15) Surgical History Open Carpal Tunnel release (09/05/08) Family History (Updated 11/23/20 @ 15:37 by Katarzyna Fajardo) Father , 50 Alcohol abuse Depression Mother Adopted Substance abuse Sister Depression Alcohol use disorder Brother Alcohol abuse Depression Hypertension Maternal Grandfather , 80 Colon cancer Depression Hypertension Paternal Grandfather Alcohol abuse Depression Maternal Grandmother , 67 Colon cancer Paternal Grandmother , 80 Alcohol abuse Depression Social History (Updated 11/23/20 @ 15:36 by Katarzyna Fajardo) Smoking/Tobacco Use Status: Never Second Hand Exposure: Yes Smoking risk assessment performed?: Yes Alcohol Intake: former Drug use: Never Substance use type: does not use Caregiver/Support person: No Number of Children: 0 Communication Needs: None Do you need help understanding health information?: Rarely Pets and animals: Yes Pets and animals: dog(s) Sexually active: Yes Do you think of yourself as: bisexual Current gender identity: female What is your relationship status?: How often do you talk on the phone with friends or family?: three or more times per week How often do you get together with friends or relatives?: once per week How often do you attend christianity or hinduism services?: 4 or more times per year Do you belong to any clubs or organized social groups?: no Panel score (0-1 are the most socially isolated patients): 2 What type of physical activity do you participate in: walking and swimming Duration: 60-90 minutes/day Frequency: 3-4 times per week Seatbelt use: always Helmet use: Yes Helmet use: always Drive intox or ride w/intox route salesman and driver: No Do you feel safe at home: Yes Do you feel safe in your relationship?: Yes History History 0 Para Hx # Term Pregnancies Multiple births Hx # Pregnancies Ectopic pregnancies AB induced Hx Number of Living Children AB spontaneous Exam Narrative Exam Narrative: Constitutional: Alert and oriented x3. Appears stated age. Normal body habitus. Head: Normocephalic, no trauma. Eyes: Pupils PERRL, Red reflex noted, EOM's intact. Eyelids symmetrical without lesions, discharge, or swelling. ENT: Bilateral TM's WNL, External ear normal to inspection, no mastoid TTP, swelling, or erythema, Nasal turbinates WNL, no nasal discharge. Normal dentition, Posterior pharynx WNL, no exudate. Chest: RRR, Normal S1, S2, distal pulses intact. Resp: Lungs clear to auscultation bilaterally, no wheezes, rales, or rhonchi. Abdomen: Soft, non-distended, Normoactive bowel sounds all 4 quads. Musculoskeletal: Normal gait, 5/5 strength to all four extremities. Skin: No suspicious rashes or lesions. Capillary refill less than 2 sec. Neurologic: Cranial nerves II-XII intact. Alert and oriented x 3. Motor: No deficits noted. Sensory: Intact bilaterally all 4 extremities. Reflexes: DTR's intact bilaterally.. Hematologic/Lymphatic: No ecchymosis, no lymphadenopathy. Course Vital Signs Vital signs: Vital Signs Temperature 37 C 10/28/21 15:56 Pulse 84 10/28/21 15:56 Respiratory Rate 18 10/28/21 15:56 Blood Pressure 122/80 10/28/21 15:56 Pulse Oximetry 99 10/28/21 15:56 Temperature 37 C 10/28/21 15:56 Temperature Source Temporal Artery Scan 10/28/21 15:56 Pulse 84 10/28/21 15:56 Respiratory Rate 18 10/28/21 15:56 Blood Pressure 122/80 10/28/21 15:56 Blood Pressure Position Sitting 10/28/21 15:56 Pulse Oximetry 99 10/28/21 15:56 Oxygen Delivery Method Room Air 10/28/21 15:56 Oxygen Flow Rate 0 10/28/21 15:56 Lab/Test Results Lab/Test Results: POC- Test(urine) Negative
[2021-10-28 17:13] LABS: Bilirubin Negative (Negative); Blood Negative (Negative); Clarity Clear (Clear); Glucose Negative (Negative); Ketones Negative (Negative); Leukocyte Esterase Negative (Negative); Nitrite Negative (Negative); Specific Gravity 1.015 (1.005-1.025); Urobilinogen 0.2 EU/dL (Up TO 0.2)
--- NOTE | 2021-10-28 18:22 | DI.VRAD_ITS ---
PROCEDURE INFORMATION: Exam: CT Abdomen And Pelvis Without Contrast Exam date and time: 10/28/2021 5:37 PM Age: 35 years old Clinical indication: Abdominal pain; Patient HX: R flank pain, ruq pain, R/O kidney stone TECHNIQUE: Imaging protocol: Computed tomography of the abdomen and pelvis without contrast. COMPARISON: US ABDOMEN LIMITED 10/28/2021 3:32 PM FINDINGS: Liver: There is a subcentimeter right hepatic hypodensity, too small to accurately characterize statistically favored to represent a cyst or hemangioma (series 2, image 14). Gallbladder and bile ducts: Unremarkable. Pancreas: Unremarkable. Spleen: Unremarkable. Adrenal glands: Unremarkable. Kidneys and ureters: There is a 0.3 cm calculus at the right ureterovesical junction. There is moderate right hydroureteronephrosis. The left kidney is unremarkable. Stomach and bowel: Unremarkable. No dilated loops of bowel to suggest obstruction. Appendix: No evidence of appendicitis. Intraperitoneal space: No free air. No significant fluid collection. Vasculature: There are phleboliths in the pelvis. No abdominal aortic aneurysm. Lymph nodes: No enlarged lymph nodes. Urinary bladder: Unremarkable as visualized. Reproductive: Unremarkable as visualized. Bones/joints: Degenerative changes in the lumbar spine. No acute fracture. Soft tissues: Unremarkable. IMPRESSION: Right ureterovesical junction calculus with moderate right hydroureteronephrosis. Dictated and Authenticated by: Hank Leach MD. Ordering:DEONDRE Pastor MD
--- NOTE | 2021-10-28 18:36 | NUR.NOTE ---
Nursing Note: Referral faxed to [facility] Urology for .3cm kidney stone for follow up.
== END 2021-10-28 18:46 | disposition home or self-care (01) ==
PROVIDERS: Emergency Provider Registered Nurse Emergency; PCP Nurse Practitioner Family
DX: N13.2 Hydronephrosis with renal and ureteral calculous obstruction (principal); Z32.02 Encounter for pregnancy test, result negative
CPT/HCPCS: 81025; 99284; 74176; 81003

== ENCOUNTER → 2021-10-28 16:06 | Outpatient (CLI) | payer MEDICAID, SELFPAY ==
--- NOTE | 2021-10-28 15:15 | DI.US_ITS ---
Exam(s) US ABDOMEN LIMITED EXAM: US ABDOMEN LIMITED CLINICAL HISTORY: r/o cholecystitis, rt upper quad pain, R10.11 TECHNIQUE: Ultrasound abdomen performed using standard protocol. COMPARISON: MR MRI - LUMBAR SPINE WO CONTRAST from 09/10/2015 US US PELVIS TRANSVAGINAL from 12/29/2018 FINDINGS: There is no ascites evident. LIVER: There is a solitary hyperechoic 8 x 9 millimeter benign-appearing lesion in the right hepatic lobe which is probably a benign hemangioma. There are no other focal hepatic findings. GALLBLADDER/BILIARY: There are no gallstones. No gallbladder wall edema nor pericholecystic fluid. The common hepatic duct isnot dilated, measuring 3-4mm at the level of rosaura hepatis. PANCREAS: There is no evidence of pancreatic mass nor dilatation of the pancreatic duct. RIGHT KIDNEY:There is mild hydronephrosis in the right kidney. Right kidney exhibits normal size and cortical thickness. No calculi seen with in the right kidney. No cysts. No solid masses. IMPRESSION: 1. No evidence of cholelithiasis nor dilatation of the biliary tree. 2. Mild-moderate right-sided hydronephrosis. The left side was apparently not scanned. 3. There is an 8 x 9 millimeter probable benign hemangioma in the right hepatic lobe. This could be followed with repeat ultrasound examination in 6 months. There is no ascites. DATA REPOSITORY:
== END ==
PROVIDERS: PCP Nurse Practitioner Family; Visit Provider Nurse Practitioner Family
DX: R10.11 Right upper quadrant pain (principal); N13.30 Unspecified hydronephrosis; K76.89 Other specified diseases of liver
CPT/HCPCS: 76705

== ENCOUNTER 2022-05-01 00:55 | Outpatient (CLI) | payer MEDICAID, SELFPAY ==
--- NOTE | 2022-05-01 07:15 | DI.RAD_ITS ---
Exam(s) XR CHEST 2V PA LATERAL EXAM: XR CHEST 2V PA LATERAL CLINICAL HISTORY: Worsening SOB,r06.02. TECHNIQUE: 2D digital imaging was performed. COMPARISON: No exams were available for comparison FINDINGS: 2 views: Heart size is normal. The mediastinum is not widened. Lungs are clear. No infiltrates nor pleural effusions. IMPRESSION: No acute pulmonary findings. DATA REPOSITORY: RADIATION DOSE DELIVERED:
== END 2022-05-01 01:15 ==
LOC: DI 00:55
PROVIDERS: PCP Nurse Practitioner Family; Visit Provider Nurse Practitioner Family
DX: R06.02 Shortness of breath (principal)
CPT/HCPCS: 71046

== ENCOUNTER 2022-08-26 14:48 | Outpatient (REF) | payer MEDICAID, SELFPAY ==
[2022-08-28 13:44] LABS: Chlamydia Result Negative (Negative); GC Result Negative (Negative)
== END 2022-08-26 14:49 | disposition home or self-care (01) ==
LOC: LBN 14:48
PROVIDERS: PCP Nurse Practitioner Family; Visit Provider Nurse Practitioner Women's Health
DX: N89.8 Other specified noninflammatory disorders of vagina; Z11.3 Encounter for screening for infections with a predominantly sexual mode of transmission
CPT/HCPCS: 87491; 87591; 87480; 87510; 87660

== ENCOUNTER 2022-08-28 01:28 | Outpatient (CLI) | payer MEDICAID, SELFPAY ==
--- NOTE | 2022-08-28 08:23 | DI.US_ITS ---
Exam(s) US PELVIS TRANSVAGINAL EXAM: US PELVIS TRANSVAGINAL CLINICAL HISTORY: Pelvic pain, heavy clots with menses,menorrhagia,n92.0,r10.2. TECHNIQUE: Transabdominal and transvaginal pelvic ultrasound was performed using standard protocol. COMPARISON: US US PELVIS TRANSVAGINAL from 12/29/[address] ABDOMEN PELVIS WO from 10/28/2021 FINDINGS: UTERUS: Position: Anteverted. Size: 7.1 long by 3.4 AP by 4.5 transverse cm Endometrium: 0.8 cm. Normal for patient's menstrual status. Myometrium: There is an intramural 1.5 x 0.9 x 2.0 slightly hypoechoic mass in the body of the uterus likely reflecting a fibroid. Cervix: Unremarkable. OVARIES: Right: 3 x 2.5 x 2.7 cm Cyst or mass: No suspicious cystic or solid masses. Left: 3.6 x 2.2 x 1.8 cm Cyst or mass: No suspicious cystic or solid masses. There is a 2.3 x 1.3 x 1.5 cm hemorrhagic left o varian cyst. DOPPLER: Color: Symmetric and uniform flow to both ovaries. CUL-DE-SAC: Free fluid: None. Other: None. IMPRESSION: 1. Normal-appearing uterus with endometrial stripe within normal limits. 2. Unremarkable bilateral ovaries. DATA REPOSITORY:
== END 2022-08-28 01:48 ==
LOC: DI 01:29
PROVIDERS: PCP Nurse Practitioner Family; Visit Provider Nurse Practitioner Women's Health
DX: N92.0 Excessive and frequent menstruation with regular cycle (principal); R10.2 Pelvic and perineal pain
CPT/HCPCS: 76830; 76856

== ENCOUNTER 2022-08-28 03:10 | Outpatient (CLI) | payer MEDICAID, SELFPAY ==
[2022-08-28 12:05] LABS: TSH (W/Ref FT4) 0.76 uIU/mL (0.36-3.74)
[2022-08-29 10:51] LABS: Hepatitis C Ab w Rflx HCV PCR Negative (Negative)
[2022-08-29 11:07] LABS: HIV-1/2 Ag & Ab Screen Negative (Negative)
[2022-08-30 13:38] LABS: Syphilis IgG w/Reflex Nonreactive (Nonreactive)
== END 2022-08-28 03:11 | disposition home or self-care (01) ==
LOC: LBO 03:11
PROVIDERS: PCP Nurse Practitioner Family; Visit Provider Nurse Practitioner Women's Health
DX: R53.83 Other fatigue; R06.02 Shortness of breath; Z11.3 Encounter for screening for infections with a predominantly sexual mode of transmission; Z11.4 Encounter for screening for human immunodeficiency virus [HIV]; Z11.59 Encounter for screening for other viral diseases
CPT/HCPCS: 36415; 86803; 87389; 84443; 86780

== ENCOUNTER 2025-02-13 08:58 | Outpatient (REF) | payer SELFPAY ==
--- NOTE | 2025-02-13 08:30 | PAPFT_PTH ---
PATIENT: Roro Seaman LOC: [facility] U#:[id number] AGE/SX: 39/F ROOM: RE02/13/[address]: Kaur Jung NP : 1985 BED: DIS: 02/13/2025 SPEC #: [id number] RECD: 02/13/25 12:56 STATUS: DOUG REBrandie #: [id number] ENA: 02/13/25 08:[address]: Kaur Jung NP DEPT: [facility] Cytology RECD BY: Lillie Gardner ENTERED: 02/13/25 12:57 SP TYPE: PAPFT OTHR DR: Stuart Vincent NP Tissues: 1 - CX/ENDOCX FOR PAP SMEARS Procedures: PAP THIN PREP/UVM Screening HPV DNA PROBE Comments: [id number] (HPV 16 & 18/45)
== END 2025-02-13 08:59 | disposition home or self-care (01) ==
LOC: LBN 08:58
PROVIDERS: PCP Nurse Practitioner Family; Visit Provider Nurse Practitioner Women's Health
DX: Z12.4 Encounter for screening for malignant neoplasm of cervix (principal)
CPT/HCPCS: 88142; 87624

== ENCOUNTER 2025-02-13 09:32 | Outpatient (CLI) | payer SELFPAY ==
[2025-02-13 09:13] LABS: HCT 39.4 % (36.0-46.0); HGB 13.0 g/dL (11.2-15.7); MCH 30.0 pg (27.0-33.0); MCHC 33.0 % (32.0-36.0); MCV 91 fL (80-95); MPV 10.4 fL (8.0-11.0); Platelet Count 207 10^3/uL (130-400); RBC 4.33 10^6/uL (3.93-5.22); RDW 13.2 % (11.7-14.6); RDW-SD 43.9 fL; WBC 8.97 10^3/uL (4.4-10.8)
[2025-02-13 09:57] LABS: TSH (W/Ref FT4) 0.59 uIU/mL (0.55-4.78)
== END 2025-02-13 09:33 | disposition home or self-care (01) ==
LOC: LBO 09:33
PROVIDERS: PCP Nurse Practitioner Family; Visit Provider Nurse Practitioner Women's Health
DX: N93.9 Abnormal uterine and vaginal bleeding, unspecified (principal); R53.83 Other fatigue
CPT/HCPCS: 36415; 85027; 84443